=== PATIENT | male | born 1980 | race African-American/Black ===

== ENCOUNTER 2025-01-08 10:04 | Emergency (ER) | payer SELFPAY | END 2025-01-08 11:03 | disposition home or self-care (01) | LOC: CSHERS 10:04 | DX: Z20.2 Contact with and (suspected) exposure to infections with a predominantly sexual mode of transmission (principal); I10 Essential (primary) hypertension; Z87.891 Personal history of nicotine dependence; Z55.1 Schooling unavailable and unattainable | CPT/HCPCS: 99282 ==

== ENCOUNTER 2025-02-18 06:04 | Emergency (ER) | payer SELFPAY | END 2025-02-18 06:52 | disposition home or self-care (01) | LOC: CSHERS 06:04 | DX: R07.9 Chest pain, unspecified (principal); I10 Essential (primary) hypertension; T46.5X6A Underdosing of other antihypertensive drugs, initial encounter; Z91.148 Patient's other noncompliance with medication regimen for other reason; Z79.899 Other long term (current) drug therapy; Z87.891 Personal history of nicotine dependence | CPT/HCPCS: 93005; 99284 ==